=== PATIENT | female | born 1990 | race Hispanic/Latino ===

== ENCOUNTER 2018-04-02 22:56 | Inpatient (IN) | payer SELFPAY ==
[~2018-04-02] VITALS: Ht 170.2 cm; Wt 83.5 kg
[2018-04-02 23:38] LABS: BASOPHILS % (AUTO) 0.5 % (0.0-5.0); EOSINOPHILS % (AUTO) 0.6 % (0.0-8.0); LYMPHOCYTES % (AUTO) 30.8 % (21.0-51.0); MEAN CORPUSCULAR HEMOGLOBIN 18.6 pg (27.0-33.0); MEAN CORPUSCULAR HGB CONC 29.8 g/dL (32.0-36.0); MEAN CORPUSCULAR VOLUME 62.3 fL (79-99); MONOCYTES % (AUTO) 4.9 % (3.0-13.0); NEUTROPHILS % (AUTO) 63.2 % (40.0-77.0); PLATELET COUNT (AUTO) 511 K/uL (130-400); RED BLOOD CELL COUNT(AUTO) 3.34 MIL/uL (4.00-5.50); RED CELL DISTRIBUTION WIDTH 17.7 % (11.0-15.5); WHITE BLOOD COUNT (AUTO) 6.9 K/uL (4.8-10.8)
[2018-04-02] MEDS ORDERED: SODIUM CHLORIDE 0.9% 1000ML 1,000 ML IV ONE (23:38)
[2018-04-02 23:44] LABS: CREATININE 0.7 mg/dL (0.5-1.5); POTASSIUM 3.3 mmol/L (3.5-5.1)
[2018-04-02 23:46] LABS: HEMATOCRIT 20.8 % (36-48)
[2018-04-03] VITALS (24 sets, daily range): BP systolic 67–123; BP diastolic 49–71
[2018-04-03] MEDS ORDERED: SODIUM CHLORIDE 0.9% 1000ML 1,000 ML IV ONE (00:34)
[2018-04-03] MEDS ORDERED: MAGNESIUM 2GM PREMIX 50ML 50 ML IV PRN (00:45)
[2018-04-03] MEDS ORDERED: POTASSIUM CHLORIDE 20MEQ/100ML 100 ML IV PRN (00:45)
[2018-04-03] MEDS ORDERED: POTASSIUM CHLORIDE 10% ELIXIR 20 MEQ/15 ML UDCUP PO PRN (00:45)
[2018-04-03] MEDS ORDERED: POTASSIUM CHLORIDE 20 MEQ ERTAB PO PRN (00:45)
[2018-04-03] MEDS ORDERED: LIDOCAINE HCL-MPF 1% 2ML VIAL IVP PRN (00:45)
[2018-04-03 00:53] LABS: INR 1.02 (0.85-1.15); PARTIAL THROMBOPLASTIN TIME 23.3 SEC (26.3-35.5); PROTHROMBIN TIME 10.7 SEC (9.6-11.6)
[2018-04-03] MEDS ORDERED: ONDANSETRON HCL MDV 20ML 2 MG/ML VIAL IV PRN (01:30)
[2018-04-03] MEDS ORDERED: ACETAMINOPHEN 325 MG TAB PO PRN (01:30)
[2018-04-03] MEDS: SODIUM CHLORIDE 0.9% 1000ML 1,000 ML IV SCH ×4 (06:01→21:21)
[2018-04-03 08:22] LABS: HEMATOCRIT 26.6 % (36-48)
[2018-04-03] MEDS: PANTOPRAZOLE SODIUM 40 MG TABLET.DR PO SCH (09:00)
[2018-04-03 15:22] LABS: HEMATOCRIT 30.2 % (36-48)
[2018-04-03] MEDS ORDERED: DEXAMETHASONE SOD PHOSPHATE 10MG/ML 1ML VIAL ONE (16:47)
[2018-04-03] MEDS ORDERED: LIDOCAINE PF 2% 5ML ABBOJECT ONE (16:47)
[2018-04-03] MEDS ORDERED: ONDANSETRON HCL 4 MG/2 ML VIAL ONE (16:47)
[2018-04-03] MEDS ORDERED: MIDAZOLAM HCL 1 MG/ML 2ML VIAL ONE (16:47)
[2018-04-03] MEDS ORDERED: FENTANYL CITRATE PF 50 MCG/1 ML 2ML VIAL ONE (16:48)
[2018-04-03] MEDS ORDERED: PROPOFOL 10 MG/ML 20ML VIAL IV ONE (16:48)
[2018-04-03] MEDS ORDERED: MEPERIDINE-PF 25 MG/ML SYG ONE (17:48)
[2018-04-03] MEDS ORDERED: ACETAMINOPHEN-CODEINE 300/30MG TAB PO PRN (19:45)
[2018-04-03] MEDS ORDERED: IBUPROFEN 800 MG TAB PO PRN (19:45)
[2018-04-03] MEDS ORDERED: SODIUM CHLORIDE 0.9% 10 ML VIAL IVP SCH (19:45)
[2018-04-03 20:26] LABS: HEMATOCRIT 27.1 % (36-48)
[2018-04-03 20:31] LABS: CREATININE 0.6 mg/dL (0.5-1.5); MAGNESIUM 1.9 mg/dL (1.80-2.40); POTASSIUM 3.9 mmol/L (3.5-5.1)
[2018-04-04 00:15] VITALS: BP 129/54
[2018-04-04] MEDS: SODIUM CHLORIDE 0.9% 1000ML 1,000 ML IV SCH (02:28)
[2018-04-04 04:00] VITALS: BP 111/73
[2018-04-04 06:00] LABS: BASOPHILS % (AUTO) 0.2 % (0.0-5.0); LYMPHOCYTES % (AUTO) 9.6 % (21.0-51.0); MEAN CORPUSCULAR HEMOGLOBIN 21.5 pg (27.0-33.0); MEAN CORPUSCULAR HGB CONC 31.2 g/dL (32.0-36.0); MEAN CORPUSCULAR VOLUME 69.1 fL (79-99); MONOCYTES % (AUTO) 2.8 % (3.0-13.0); NEUTROPHILS % (AUTO) 87.4 % (40.0-77.0); PLATELET COUNT (AUTO) 489 K/uL (130-400); RED CELL DISTRIBUTION WIDTH 24.5 % (11.0-15.5)
[2018-04-04 06:11] LABS: ALBUMIN 3.2 g/dL (3.5-5.0); BILIRUBIN,TOTAL 0.5 mg/dL (0.2-1.0); CREATININE 0.7 mg/dL (0.5-1.5); POTASSIUM 4.3 mmol/L (3.5-5.1); TOTAL PROTEIN, SERUM 6.9 g/dL (6.0-8.3)
[2018-04-04 08:18] VITALS: BP 103/64
[2018-04-04] MEDS: PANTOPRAZOLE SODIUM 40 MG TABLET.DR PO SCH (09:38)
[2018-04-04 12:12] VITALS: BP 123/77
== END 2018-04-04 12:41 | disposition home or self-care (01) | DRG 744 ==
LOC: EDH 22:56 → EDHIP 22:57 → 3CH 04-03 01:07
PROVIDERS: ADMIT Internal Medicine; ATTEND Internal Medicine
PROC: 30233N1 Transfusion of Nonautologous Red Blood Cells into Peripheral Vein, Percutaneous Approach (ICD-10-PCS; 2018-04-03)
PROC: 0UDB7ZZ Extraction of Endometrium, Via Natural or Artificial Opening (ICD-10-PCS; principal; 2018-04-03 16:48)
DX: N92.0 Excessive and frequent menstruation with regular cycle (principal); D62 Acute posthemorrhagic anemia; E87.6 Hypokalemia; Z88.0 Allergy status to penicillin; Z98.891 History of uterine scar from previous surgery; Z80.3 Family history of malignant neoplasm of breast; Z82.49 Family history of ischemic heart disease and other diseases of the circulatory system
CPT/HCPCS: 36415; 36430; 76856; 80048; 80053; 83735; 84703; 85014; 85018; 85025; 85610; 85730; 86850; 86900; 86901; 86922; 88305; A4351; J1100; J2001; J2175; J2250; J2405; J2704; J3010; J3475; J7030; J7120; P9016

== ENCOUNTER 2018-07-19 19:23 | Emergency (ER) | payer OTHER ==
[2018-07-19] MEDS ORDERED: KETOROLAC TROMETHAMINE 30MG/ML ONE (19:47)
[2018-07-19] MEDS ORDERED: SODIUM CHLORIDE 0.9% 1000ML 1,000 ML IV ONE (19:47)
[2018-07-19 20:01] LABS: BASOPHILS % (AUTO) 0.5 % (0.0-5.0); EOSINOPHILS % (AUTO) 0.6 % (0.0-8.0); HEMATOCRIT 29.8 % (36-48); LYMPHOCYTES % (AUTO) 32.6 % (21.0-51.0); MEAN CORPUSCULAR HEMOGLOBIN 25.8 pg (27.0-33.0); MEAN CORPUSCULAR HGB CONC 32.5 g/dL (32.0-36.0); MEAN CORPUSCULAR VOLUME 79.4 fL (79-99); MONOCYTES % (AUTO) 5.5 % (3.0-13.0); NEUTROPHILS % (AUTO) 60.8 % (40.0-77.0); NUCLEATED RED BLOOD CELLS 0.1 % (0.0-0.19); PLATELET COUNT (AUTO) 383 K/uL (130-400); RED BLOOD CELL COUNT(AUTO) 3.75 MIL/uL (4.00-5.50); RED CELL DISTRIBUTION WIDTH 15.3 % (11.0-15.5); WHITE BLOOD COUNT (AUTO) 7.4 K/uL (4.8-10.8)
[2018-07-19 20:02] LABS: CARBON DIOXIDE 26 mmol/L (21-32); CHLORIDE 107 mmol/L (101-111); CREATININE 0.9 mg/dL (0.5-1.5); GLOMERULAR FILTR. RATE CALC 79 mL/min (>60); GLUCOSE,RANDOM 90 mg/dL (70-105); POTASSIUM 3.9 mmol/L (3.5-5.1); SODIUM SERUM 142 mmol/L (136-145); UREA NITROGEN, BLOOD 14 mg/dL (7-18)
[2018-07-19 20:06] LABS: ALANINE AMINOTRANSFERASE 12 U/L (12-78); ALBUMIN 3.6 g/dL (3.5-5.0); ASPARTATE AMINOTRANSFERASE 19 U/L (10-37); BILIRUBIN,DIRECT < 0.1 mg/dL (0.0-0.3); BILIRUBIN,TOTAL 0.1 mg/dL (0.2-1.0); TOTAL PROTEIN, SERUM 7.4 g/dL (6.0-8.3)
[2018-07-19 20:10] LABS: APPEARANCE,URINE CLOUDY (CLEAR); BILIRUBIN,URINE NEGATIVE (NEGATIVE); COLOR,URINE YELLOW (YELLOW); GLUCOSE, URINE (UA) NEGATIVE (NEGATIVE); KETONES,URINE 5 mg/dL (NEGATIVE); LEUKOCYTE ESTERASE ,URINE NEGATIVE (NEGATIVE); NITRATE,URINE POSITIVE (NEGATIVE); OCCULT BLOOD,URINE MODERATE (NEGATIVE); PH,URINE 6.5 (5.0-8.0); PROTEIN,URINE NEGATIVE (NEGATIVE)
[2018-07-19 20:29] LABS: BACTERIA,URINE Many /HPF (None Seen); RBC,URINE 0-1 /HPF (0-1); SQUAMOUS EPITHELIAL CELL,UR Few /HPF (0-2)
== END 2018-07-19 21:16 | disposition home or self-care (01) ==
LOC: EDH 19:23
DX: N30.00 Acute cystitis without hematuria (principal); D64.9 Anemia, unspecified; N94.6 Dysmenorrhea, unspecified; Z88.0 Allergy status to penicillin
CPT/HCPCS: 36415; 80048; 80076; 81001; 85025; 96374; 99283; J1885; J7030

== ENCOUNTER 2018-12-01 14:32 | Observation (INO) | payer SELFPAY ==
[~2018-12-01] VITALS: Ht 170.2 cm; Wt 79.4 kg
[2018-12-01 14:47] LABS: BASOPHILS % (AUTO) 0.7 % (0.0-5.0); EOSINOPHILS % (AUTO) 0.6 % (0.0-8.0); HEMATOCRIT 24.3 % (36-48); MEAN CORPUSCULAR HEMOGLOBIN 20.2 pg (27.0-33.0); MEAN CORPUSCULAR HGB CONC 30.1 g/dL (32.0-36.0); MEAN CORPUSCULAR VOLUME 67.1 fL (79-99); NEUTROPHILS % (AUTO) 68.7 % (40.0-77.0); PLATELET COUNT (AUTO) 398 K/uL (130-400); RED BLOOD CELL COUNT(AUTO) 3.63 MIL/uL (4.00-5.50); WHITE BLOOD COUNT (AUTO) 5.4 K/uL (4.8-10.8)
[2018-12-01 15:05] LABS: CREATININE 0.9 mg/dL (0.5-1.5); POTASSIUM 3.8 mmol/L (3.5-5.1)
[2018-12-01 15:15] LABS: ALBUMIN 3.4 g/dL (3.5-5.0); BILIRUBIN,TOTAL 0.2 mg/dL (0.2-1.0)
[2018-12-01] MEDS ORDERED: ACETAMINOPHEN 325 MG TAB PO PRN (17:45)
[2018-12-01 18:28] VITALS: BP 119/62
[2018-12-01 19:00] VITALS: BP 101/56
[2018-12-01] MEDS ORDERED: FERR-82 PO (19:04)
[2018-12-01] MEDS ORDERED: FOLI-114 PO (19:04)
--- NOTE | 2018-12-01 19:10 | NUR ---
PT'S ASSESSMENT DONE, PRBC UNIT #1 INFUSING WELL. NO REACTION NOTED.
--- NOTE | 2018-12-01 20:31 | NUR ---
MED FOR C/O MILD HEADACHE, CLAIMED SHE'S HAD IT ALL DAY ON AND OFF.
--- NOTE | 2018-12-01 21:30 | NUR ---
DENIED FURTHER HEADACHE. PRBC #1 INFUSED. NO S/S OF BLOOD TRANSFUSION REACTION NOTED OR REPORTED.
--- NOTE | 2018-12-01 23:00 | NUR ---
BLOOD INFUSING WELL, PT. AWAKE AND ON THE PHONE, DENIED HEADACHE AND ANY REACTION.
[2018-12-01 23:35] VITALS: BP 102/44
[2018-12-02] MEDS: DEXTROSE 5 %-0.45 % NACL 1,000 ML IV SCH ×3 (00:25→03:47)
[2018-12-02 03:40] VITALS: BP 112/65
[2018-12-02 06:42] LABS: HEMATOCRIT 29.8 % (36-48); MEAN CORPUSCULAR HEMOGLOBIN 23.4 pg (27.0-33.0); MEAN CORPUSCULAR HGB CONC 32.1 g/dL (32.0-36.0); MEAN CORPUSCULAR VOLUME 72.8 fL (79-99); PLATELET COUNT (AUTO) 306 K/uL (130-400); RED BLOOD CELL COUNT(AUTO) 4.09 MIL/uL (4.00-5.50); RED CELL DISTRIBUTION WIDTH 21.1 % (11.0-15.5); WHITE BLOOD COUNT (AUTO) 5.1 K/uL (4.8-10.8)
[2018-12-02 07:38] VITALS: BP 99/65
--- NOTE | 2018-12-02 09:30 | NUR ---
DR. HARDEN ROUNDED AND DISCHARGED PATIENT TO HOME. PATIENT TO FOLLOW UP IN ONE WEEK IN CLINIC.
[2018-12-02 11:24] VITALS: BP 107/67
--- NOTE | 2018-12-02 11:45 | NUR ---
Discharge instructions given and patient verbalized understanding instructions given. Script for Ortho Evra given and instructed on proper application of weekly patches.
--- NOTE | 2018-12-02 13:45 | NUR ---
PATIENT WAS TAKEN VIA W/C TO FAMILY VEHICLE AND WAS DISCHARGED TO HER FAMILY IN STABLE CONDITION.
== END 2018-12-02 13:25 | disposition home or self-care (01) ==
LOC: EDH 14:32 → EDHIP 14:33 → WSH 18:15
DX: D50.0 Iron deficiency anemia secondary to blood loss (chronic) (principal); R55 Syncope and collapse; Z82.49 Family history of ischemic heart disease and other diseases of the circulatory system; Z98.891 History of uterine scar from previous surgery; Z79.899 Other long term (current) drug therapy
CPT/HCPCS: 36415 ×2; 36430; 80053; 84702; 85025; 85027; 86850; 86900; 86901; 86922 ×2; 96360; 96361; 99284; G0378 ×19; P9016 ×2

== ENCOUNTER 2018-12-07 03:28 | Emergency (ER) | payer OTHER ==
[~2018-12-07 03:28] MED LIST: FERR-82 PO; FOLI-114 PO
[2018-12-07 03:53] LABS: BASOPHILS % (AUTO) 0.9 % (0.0-5.0); EOSINOPHILS % (AUTO) 0.6 % (0.0-8.0); HEMATOCRIT 32.2 % (36-48); MEAN CORPUSCULAR HEMOGLOBIN 23.1 pg (27.0-33.0); MEAN CORPUSCULAR HGB CONC 31.4 g/dL (32.0-36.0); MEAN CORPUSCULAR VOLUME 73.7 fL (79-99); MONOCYTES % (AUTO) 5.3 % (3.0-13.0); NEUTROPHILS % (AUTO) 67.2 % (40.0-77.0); NUCLEATED RED BLOOD CELLS 0.1 % (0.0-0.19); PLATELET COUNT (AUTO) 346 K/uL (130-400); RED BLOOD CELL COUNT(AUTO) 4.37 MIL/uL (4.00-5.50); RED CELL DISTRIBUTION WIDTH 22.8 % (11.0-15.5); WHITE BLOOD COUNT (AUTO) 8.4 K/uL (4.8-10.8)
[2018-12-07 04:06] LABS: INR 0.91 (0.85-1.15); PARTIAL THROMBOPLASTIN TIME 21.9 SEC (26.3-35.5); PROTHROMBIN TIME 9.6 SEC (9.6-11.6)
[2018-12-07] MEDS ORDERED: MAG HYDROX/AL HYDROX/SIMETH ES 30 ML SUSP UDCUP ONE (04:06)
[2018-12-07] MEDS ORDERED: LIDOCAINE HCL 2% VISCOUS 15 ML UDCUP ONE (04:06)
[2018-12-07 04:18] LABS: CREATINE KINASE, TOTAL 102 U/L (21-232); HCG,QUANTITATIVE 0 mIU/mL (0-5)
[2018-12-07] MEDS ORDERED: FAMOTIDINE 20MG TAB 20 MG TAB ONE (05:31)
[2018-12-07] MEDS ORDERED: ACETAMINOPHEN 325 MG TAB ONE (05:32)
== END 2018-12-07 05:58 | disposition home or self-care (01) ==
LOC: EDH 03:28
DX: K21.9 Gastro-esophageal reflux disease without esophagitis (principal); R07.89 Other chest pain; D64.9 Anemia, unspecified; Z88.0 Allergy status to penicillin
CPT/HCPCS: 36415; 71045; 82550; 84484; 84702; 85025; 85610; 85730; 93005

== ENCOUNTER 2020-07-09 17:01 | Observation (INO) | payer MEDICAID ==
[2020-07-09 17:42] LABS: APPEARANCE,URINE Cloudy (CLEAR); BILIRUBIN,URINE Negative (NEGATIVE); COLOR,URINE Yellow (YELLOW); GLUCOSE, URINE (UA) TRACE mg/dL (NEGATIVE); KETONES,URINE Negative (NEGATIVE); LEUKOCYTE ESTERASE ,URINE Trace (NEGATIVE); NITRATE,URINE Negative (NEGATIVE); OCCULT BLOOD,URINE Negative (NEGATIVE); PH,URINE 6.5 (5.0-8.0); PROTEIN,URINE Negative (NEGATIVE)
[2020-07-09 17:56] LABS: BACTERIA,URINE Few /HPF (None Seen); MUCUS,URINE Few LPF (None Seen); SQUAMOUS EPITHELIAL CELL,UR Moderate /HPF (0-2)
== END 2020-07-09 18:50 | disposition home or self-care (01) ==
LOC: EDH 17:01 → LDH 17:02
PROVIDERS: ADMIT Specialist; ATTEND Specialist
DX: O62.9 Abnormality of forces of labor, unspecified (principal); O34.219 Maternal care for unspecified type scar from previous cesarean delivery; Z88.0 Allergy status to penicillin; Z3A.37 37 weeks gestation of pregnancy
CPT/HCPCS: 59025; 81001; 99284; G0378 ×2

== ENCOUNTER 2020-07-11 09:00 | Inpatient (IN) | payer MEDICAID ==
[~2020-07-11] VITALS: Ht 170.2 cm; Wt 96.2 kg
[2020-07-15] MEDS ORDERED: LACTATED RINGERS 1000ML 1,000 ML IV SCH (06:30)
[2020-07-15] MEDS ORDERED: CLINDAMYCIN IVPB 900MG/50ML 50 ML IVPB PRN (06:30)
[2020-07-15] MEDS ORDERED: GENTAMICIN SULFATE 240 MG in 0.9%NACL 100ML 100 ML IV PRN (06:30)
[2020-07-15 06:52] LABS: HEMATOCRIT 35.8 % (36-48); MEAN CORPUSCULAR HEMOGLOBIN 29.8 pg (27.0-33.0); MEAN CORPUSCULAR HGB CONC 33.8 g/dL (32.0-36.0); MEAN CORPUSCULAR VOLUME 88.2 fL (79-99); RED BLOOD CELL COUNT(AUTO) 4.06 MIL/uL (4.00-5.50); RED CELL DISTRIBUTION WIDTH 17.2 % (11.0-15.5); WHITE BLOOD COUNT (AUTO) 7.8 K/uL (4.8-10.8)
[2020-07-15 07:02] LABS: APPEARANCE,URINE Clear (CLEAR); BILIRUBIN,URINE Negative (NEGATIVE); COLOR,URINE Dark Yellow (YELLOW); GLUCOSE, URINE (UA) Negative (NEGATIVE); KETONES,URINE Trace mg/dL (NEGATIVE); LEUKOCYTE ESTERASE ,URINE Small (NEGATIVE); NITRATE,URINE Negative (NEGATIVE); OCCULT BLOOD,URINE Negative (NEGATIVE); PROTEIN,URINE Negative (NEGATIVE)
[2020-07-15] MEDS ORDERED: METHYLERGONOVINE MALEATE 0.2 MG/1 ML ML ONE (07:18)
[2020-07-15 07:40] VITALS: BP 104/70
[2020-07-15 07:41] LABS: BACTERIA,URINE Few /HPF (None Seen); RBC,URINE 0-1 /HPF (0-1)
[2020-07-15] MEDS ORDERED: CITRIC ACID/SODIUM CITRATE 30 ML UDCUP ONE (07:59)
[2020-07-15] MEDS ORDERED: MORPHINE PF 100MG/10ML AMP IV ONE (08:01)
[2020-07-15] MEDS ORDERED: FENTANYL CITRATE PF 50 MCG/1 ML 2ML VIAL ONE (08:02)
[2020-07-15] MEDS ORDERED: GENTAMICIN PROTOCOL PER PHARMACY IV ONE (08:05)
[2020-07-15] MEDS ORDERED: KETAMINE HCL 100 MG/ML 5ML VIAL IJ ONE (08:22)
[2020-07-15] MEDS ORDERED: MIDAZOLAM HCL 1 MG/ML 2ML VIAL ONE ×2 (08:29→08:52)
[2020-07-15] MEDS ORDERED: ONDANSETRON 4MG INJ ONE (08:42)
[2020-07-15] MEDS ORDERED: OXYTOCIN-LR 20 UNITS/1000 ML 1,000 ML IV PRN (09:15)
[2020-07-15] MEDS ORDERED: MEPERIDINE-PF 75 MG/ML SYG IM PRN (09:15)
[2020-07-15] MEDS ORDERED: 0.9%NACL 10ML VIAL IVP PRN (09:15)
[2020-07-15] MEDS ORDERED: PROMETHAZINE HCL 25 MG/ML 1ML AMPULE IM PRN (09:15)
[2020-07-15] MEDS ORDERED: OXYTOCIN 10 UNIT/1ML 10ML VIAL ONE (09:16)
[2020-07-15] MEDS ORDERED: NALOXONE HCL 0.4 MG/1 ML ML IVP PRN (10:00)
[2020-07-15] MEDS ORDERED: EPHEDRINE SULFATE 50 MG/ML AMPULE IVP PRN (10:00)
[2020-07-15] MEDS ORDERED: LORATADINE 10 MG TABLET PO PRN (10:00)
[2020-07-15] MEDS ORDERED: ONDANSETRON 4MG INJ IVP PRN (10:00)
[2020-07-15] MEDS: DiphenhydrAMINE HCL 50 MG/ML VIAL IVP PRN (10:25)
[2020-07-15 11:55] VITALS: BP 106/62
[2020-07-15] MEDS ORDERED: HYDROCODONE/ACETAMINOPHEN 5/325 MG TAB PO PRN (12:00)
[2020-07-15] MEDS ORDERED: ACETAMINOPHEN 500 MG TABLET PO PRN (12:00)
[2020-07-15] MEDS: DEXTROSE 5 %-0.45 % NACL 1,000 ML IV PRN ×2 (14:54→21:17)
[2020-07-15 15:55] VITALS: BP 111/53
[2020-07-15 19:23] VITALS: BP 103/93
[2020-07-15] MEDS: ACETAMINOPHEN WITH CODEINE 1 TAB TAB PO PRN (21:14)
[2020-07-15 23:57] VITALS: BP 120/72
[2020-07-16] MEDS: ACETAMINOPHEN WITH CODEINE 1 TAB TAB PO PRN ×2 (03:46→11:38)
[2020-07-16] MEDS: DEXTROSE 5 %-0.45 % NACL 1,000 ML IV PRN (03:49)
[2020-07-16 03:54] VITALS: BP 116/75
[2020-07-16] MEDS: DiphenhydrAMINE HCL 50 MG/ML VIAL IVP PRN (04:51)
[2020-07-16 06:11] LABS: HEMATOCRIT 31.4 % (36-48); MEAN CORPUSCULAR HEMOGLOBIN 29.4 pg (27.0-33.0); MEAN CORPUSCULAR HGB CONC 32.8 g/dL (32.0-36.0); MEAN CORPUSCULAR VOLUME 89.7 fL (79-99); RED BLOOD CELL COUNT(AUTO) 3.5 MIL/uL (4.00-5.50); RED CELL DISTRIBUTION WIDTH 17.3 % (11.0-15.5); WHITE BLOOD COUNT (AUTO) 7.7 K/uL (4.8-10.8)
[2020-07-16 07:15] LABS: HEPATITIS Bs ANTIGEN SCREEN P Negative (Negative)
[2020-07-16] MEDS ORDERED: LANOLIN 30GM OINTMENT TP PRN (08:15)
[2020-07-16] MEDS ORDERED: BISACODYL 10 MG SUPP.RECT RC PRN (08:15)
[2020-07-16 08:31] VITALS: BP 106/63
[2020-07-16] MEDS: DOCUSATE SODIUM 100 MG CAP PO SCH ×2 (08:32→21:05)
[2020-07-16] MEDS: SIMETHICONE 80 MG TAB.CHEW PO PRN ×3 (08:32→21:05)
[2020-07-16] MEDS: IBUPROFEN 800 MG TAB PO SCH ×2 (08:32→16:13)
[2020-07-16 11:10] VITALS: BP 109/77
[2020-07-16 15:40] VITALS: BP 108/80
[2020-07-16 19:34] VITALS: BP 100/59
[2020-07-17] MEDS: IBUPROFEN 800 MG TAB PO SCH ×2 (00:19→08:39)
[2020-07-17 00:23] VITALS: BP 90/59
[2020-07-17 03:59] VITALS: BP 98/61
[2020-07-17 07:32] VITALS: BP 99/58
[2020-07-17] MEDS: DOCUSATE SODIUM 100 MG CAP PO SCH (08:39)
[2020-07-17] MEDS: SIMETHICONE 80 MG TAB.CHEW PO PRN (08:39)
[2020-07-17] MEDS ORDERED: ACET1TAB25 PO (09:04)
== END 2020-07-17 10:45 | disposition home or self-care (01) | DRG 540 ==
LOC: LDH 07-15 06:16 → WSH 07-15 11:00
PROVIDERS: ADMIT Specialist; ATTEND Specialist
PROC: 0UB70ZZ Excision of Bilateral Fallopian Tubes, Open Approach (ICD-10-PCS; 2020-07-15)
PROC: 0DNU0ZZ Release Omentum, Open Approach (ICD-10-PCS; 2020-07-15)
PROC: 0DNW0ZZ Release Peritoneum, Open Approach (ICD-10-PCS; 2020-07-15)
PROC: 10D00Z1 Extraction of Products of Conception, Low, Open Approach (ICD-10-PCS; principal; 2020-07-15 09:00)
DX: O34.211 Maternal care for low transverse scar from previous cesarean delivery (principal); O99.892 Other specified diseases and conditions complicating childbirth; N73.6 Female pelvic peritoneal adhesions (postinfective); O69.1XX0 Labor and delivery complicated by cord around neck, with compression, not applicable or unspecified; Z20.822 Contact with and (suspected) exposure to COVID-19; Z3A.38 38 weeks gestation of pregnancy; Z37.0 Single live birth; Z30.2 Encounter for sterilization; Z88.0 Allergy status to penicillin
CPT/HCPCS: 36415; 59510; 81001; 85027; 86592; 86850; 86900; 86901; 87340; 88302; A4344; G0378; J1200; J2210; J2250; J2274; J2405; J2590; J3010; J3490; J7042; J7120; U0003

== ENCOUNTER 2022-07-07 09:49 | Emergency (ER) | payer MEDICARE, MEDICAID ==
[~2022-07-07] VITALS: Ht 170.2 cm; Wt 83.9 kg
[~2022-07-07 09:49] MED LIST changes: +ACET-2079 PO
[2022-07-07 09:55] VITALS: BP 125/74
[2022-07-07 10:29] LABS: BASOPHILS % (AUTO) 0.6 % (0.0-5.0); EOSINOPHILS % (AUTO) 2.2 % (0.0-8.0); HEMATOCRIT 24.7 % (36-48); LYMPHOCYTES % (AUTO) 30.2 % (21.0-51.0); MEAN CORPUSCULAR HEMOGLOBIN 18.9 pg (27.0-33.0); MEAN CORPUSCULAR HGB CONC 28.3 g/dL (32.0-36.0); MEAN CORPUSCULAR VOLUME 66.8 fL (79-99); NEUTROPHILS % (AUTO) 61.8 % (40.0-77.0); PLATELET COUNT (AUTO) 466 K/uL (130-400); RED CELL DISTRIBUTION WIDTH 15.9 % (11.0-15.5); WHITE BLOOD COUNT (AUTO) 5.4 K/uL (4.8-10.8)
[2022-07-07 10:37] LABS: APPEARANCE,URINE CLEAR (CLEAR); BILIRUBIN,URINE NEGATIVE (NEGATIVE); COLOR,URINE COLORLESS (YELLOW); GLUCOSE, URINE (UA) NEGATIVE (NEGATIVE); KETONES,URINE NEGATIVE (NEGATIVE); LEUKOCYTE ESTERASE ,URINE 25 Leu/uL (NEGATIVE); NITRATE,URINE NEGATIVE (NEGATIVE); OCCULT BLOOD,URINE NEGATIVE (NEGATIVE); PROTEIN,URINE NEGATIVE (NEGATIVE); UROBILINOGEN,URINE 0.2 mg/dL (0.2-1.0)
[2022-07-07 10:38] LABS: CREATININE 0.7 mg/dL (0.5-1.5); POTASSIUM 3.6 mmol/L (3.5-5.1)
[2022-07-07 10:43] LABS: ALBUMIN 3.7 g/dL (3.5-5.0); TOTAL PROTEIN, SERUM 7.9 g/dL (6.0-8.3)
[2022-07-07 10:51] LABS: BACTERIA,URINE RARE /HPF (None Seen); MUCUS,URINE RARE LPF (None Seen); SQUAMOUS EPITHELIAL CELL,UR FEW /HPF (0-2)
[2022-07-07] MEDS ORDERED: FERR324T4 PO (12:11)
== END 2022-07-07 12:31 | disposition home or self-care (01) ==
LOC: EDH 09:49
DX: D64.9 Anemia, unspecified (principal); Z88.0 Allergy status to penicillin; Z98.890 Other specified postprocedural states
CPT/HCPCS: 36415; 80053; 81001; 82270; 85025; 86850; 86900; 86901

== ENCOUNTER 2022-07-09 21:53 | Emergency (ER) | payer MEDICARE, MEDICAID ==
[~2022-07-09] VITALS: Ht 170.2 cm; Wt 84.8 kg
[~2022-07-09 21:53] MED LIST changes: +FERR324T4 PO
[2022-07-09 23:08] LABS: BASOPHILS % (AUTO) 0.4 % (0.0-5.0); EOSINOPHILS % (AUTO) 2.5 % (0.0-8.0); HEMATOCRIT 23.8 % (36-48); LYMPHOCYTES % (AUTO) 32.7 % (21.0-51.0); MEAN CORPUSCULAR HEMOGLOBIN 18.9 pg (27.0-33.0); MEAN CORPUSCULAR HGB CONC 27.3 g/dL (32.0-36.0); MEAN CORPUSCULAR VOLUME 69.2 fL (79-99); MONOCYTES % (AUTO) 5.5 % (3.0-13.0); NEUTROPHILS % (AUTO) 58.5 % (40.0-77.0); PLATELET COUNT (AUTO) 497 K/uL (130-400); RED BLOOD CELL COUNT(AUTO) 3.44 MIL/uL (4.00-5.50); RED CELL DISTRIBUTION WIDTH 16.4 % (11.0-15.5); WHITE BLOOD COUNT (AUTO) 8.5 K/uL (4.8-10.8)
[2022-07-09 23:18] LABS: CREATININE 0.8 mg/dL (0.5-1.5); POTASSIUM 3.5 mmol/L (3.5-5.1)
[2022-07-09 23:23] LABS: ALBUMIN 3.5 g/dL (3.5-5.0); TOTAL PROTEIN, SERUM 7.3 g/dL (6.0-8.3)
[2022-07-09 23:30] LABS: APPEARANCE,URINE TURBID (CLEAR); BILIRUBIN,URINE NEGATIVE (NEGATIVE); COLOR,URINE DARK-BROWN (YELLOW); GLUCOSE, URINE (UA) NEGATIVE (NEGATIVE); KETONES,URINE NEGATIVE (NEGATIVE); LEUKOCYTE ESTERASE ,URINE 75 Leu/uL (NEGATIVE); NITRATE,URINE NEGATIVE (NEGATIVE); OCCULT BLOOD,URINE LARGE (NEGATIVE); PROTEIN,URINE 200 mg/dL (NEGATIVE); UROBILINOGEN,URINE 0.2 mg/dL (0.2-1.0)
[2022-07-09 23:38] LABS: RBC,URINE TNTC /HPF (0-1)
[2022-07-10 04:34] LABS: HEMATOCRIT 25.7 % (36-48); MEAN CORPUSCULAR HEMOGLOBIN 20.8 pg (27.0-33.0); MEAN CORPUSCULAR HGB CONC 29.6 g/dL (32.0-36.0); MEAN CORPUSCULAR VOLUME 70.2 fL (79-99); RED BLOOD CELL COUNT(AUTO) 3.66 MIL/uL (4.00-5.50); RED CELL DISTRIBUTION WIDTH 18.4 % (11.0-15.5); WHITE BLOOD COUNT (AUTO) 7.9 K/uL (4.8-10.8)
[2022-07-10 04:43] VITALS: BP 115/63
== END 2022-07-10 04:52 | disposition home or self-care (01) ==
LOC: EDH 21:53
DX: D64.9 Anemia, unspecified (principal); N93.8 Other specified abnormal uterine and vaginal bleeding; Z88.0 Allergy status to penicillin; Z98.890 Other specified postprocedural states
CPT/HCPCS: 99285; 36430; 84484; 80053; 85025; 86850; 86900; 86901; 86923 ×2; 87088; 81001; 81025; 36415 ×2; 93005; 85027; P9016

== ENCOUNTER 2022-08-06 09:21 | Emergency (ER) | payer MEDICARE, MEDICAID ==
[~2022-08-06] VITALS: Ht 170.2 cm; Wt 83.0 kg
[2022-08-06 09:49] LABS: BASOPHILS % (AUTO) 0.6 % (0.0-5.0); EOSINOPHILS % (AUTO) 2.7 % (0.0-8.0); HEMATOCRIT 31.5 % (36-48); LYMPHOCYTES % (AUTO) 32.1 % (21.0-51.0); MEAN CORPUSCULAR HEMOGLOBIN 22.7 pg (27.0-33.0); MEAN CORPUSCULAR HGB CONC 29.2 g/dL (32.0-36.0); MEAN CORPUSCULAR VOLUME 77.6 fL (79-99); MONOCYTES % (AUTO) 3.7 % (3.0-13.0); NEUTROPHILS % (AUTO) 60.7 % (40.0-77.0); PLATELET COUNT (AUTO) 321 K/uL (130-400); RED BLOOD CELL COUNT(AUTO) 4.06 MIL/uL (4.00-5.50); RED CELL DISTRIBUTION WIDTH 25.2 % (11.0-15.5); WHITE BLOOD COUNT (AUTO) 5.1 K/uL (4.8-10.8)
[2022-08-06 09:57] LABS: CREATININE 0.7 mg/dL (0.5-1.5); POTASSIUM 3.8 mmol/L (3.5-5.1)
[2022-08-06 10:03] LABS: ALBUMIN 3.3 g/dL (3.5-5.0)
[2022-08-06 12:34] VITALS: BP 112/63
[2022-08-06 12:35] LABS: APPEARANCE,URINE TURBID (CLEAR); BILIRUBIN,URINE NEGATIVE (NEGATIVE); COLOR,URINE BROWN (YELLOW); GLUCOSE, URINE (UA) NEGATIVE (NEGATIVE); KETONES,URINE NEGATIVE (NEGATIVE); LEUKOCYTE ESTERASE ,URINE 25 Leu/uL (NEGATIVE); NITRATE,URINE NEGATIVE (NEGATIVE); OCCULT BLOOD,URINE LARGE (NEGATIVE); PROTEIN,URINE 30 mg/dL (NEGATIVE); UROBILINOGEN,URINE 0.2 mg/dL (0.2-1.0)
[2022-08-06 13:22] LABS: BACTERIA,URINE FEW /HPF (None Seen); RBC,URINE TNTC /HPF (0-1); SQUAMOUS EPITHELIAL CELL,UR FEW /HPF (0-2); WBC,URINE TNTC /HPF (0-1)
== END 2022-08-06 12:42 | disposition home or self-care (01) ==
LOC: EDH 09:21
DX: D64.9 Anemia, unspecified (principal); Z88.0 Allergy status to penicillin
CPT/HCPCS: 36415; 80053; 81001; 84703; 85025; 86850; 86900; 86901; 87088

== ENCOUNTER 2023-09-02 10:18 | Emergency (ER) | payer MEDICAID, MEDICARE, OTHER ==
[~2023-09-02] VITALS: Ht 170.2 cm; Wt 80.7 kg
[2023-09-02] MEDS ORDERED: 0.9%NACL 1000ML 1,000 ML IV ONE (10:30)
[2023-09-02] MEDS ORDERED: ONDANSETRON 4MG INJ IVP ONE (10:30)
[2023-09-02 11:20] LABS: SARS-CoV-2, RNA, NAAT NEGATIVE SARS CoV-2 (NEGATIVE)
[2023-09-02 11:25] LABS: INFLUENZA TYPE A Negative For Type A (NEGATIVE); INFLUENZA TYPE B Negative For Type B (NEGATIVE)
[2023-09-02 11:36] LABS: RAPID GROUP A STREP positive (NEGATIVE)
[2023-09-02] MEDS ORDERED: CLIN-141 PO (11:57)
[2023-09-02] MEDS: DEXAMETHASONE SOD PHOSPHATE 4 MG/ML 1ML VIAL IM ONE (12:20)
[2023-09-02 12:21] LABS: APPEARANCE,URINE CLOUDY (CLEAR); BILIRUBIN,URINE NEGATIVE (NEGATIVE); COLOR,URINE LIGHT-YELLOW (YELLOW); GLUCOSE, URINE (UA) NEGATIVE (NEGATIVE); KETONES,URINE NEGATIVE (NEGATIVE); LEUKOCYTE ESTERASE ,URINE NEGATIVE Leu/uL (NEGATIVE); NITRATE,URINE NEGATIVE (NEGATIVE); OCCULT BLOOD,URINE SMALL (NEGATIVE); PROTEIN,URINE NEGATIVE (NEGATIVE); UROBILINOGEN,URINE 0.2 mg/dL (0.2-1.0)
[2023-09-02 12:42] LABS: ADD UA MICROSCOPIC YES
[2023-09-02 12:55] LABS: BACTERIA,URINE RARE /HPF (None Seen); MUCUS,URINE RARE LPF (None Seen); SQUAMOUS EPITHELIAL CELL,UR MOD /HPF (0-2)
[2023-09-02 12:58] VITALS: BP 128/68; PULSE 79; RESP 16; O2SAT 98
== END 2023-09-02 12:59 | disposition home or self-care (01) ==
LOC: EDH 10:18
DX: J02.0 Streptococcal pharyngitis (principal); Z20.822 Contact with and (suspected) exposure to COVID-19
CPT/HCPCS: 99283; 87635; 87880; 87804 ×2; 81001; 96372; J1100